=== PATIENT | female | born 1995 | race African-American/Black ===

== ENCOUNTER 2017-07-24 22:29 | Emergency (ER) | payer OTHER ==
[~2017-07-24] VITALS: Ht 157.5 cm; Wt 108.2 kg
[2017-07-24 22:39] VITALS: BP 124/69
--- NOTE | 2017-07-24 23:05 | NUR ---
PATIENT LEFT WITHOUT BEING SEEN BY DR. BLAKE. NO FURTHER CARE PROVIDED FOR PATIENT.
== END 2017-07-24 23:05 | disposition left against medical advice (07) ==
LOC: MED 22:29
DX: R10.13 Epigastric pain (principal); Z53.21 Procedure and treatment not carried out due to patient leaving prior to being seen by health care provider

== ENCOUNTER 2017-07-26 12:13 | Emergency (ER) | payer OTHER ==
[~2017-07-26] VITALS: Ht 157.5 cm; Wt 91.2 kg
[2017-07-26 12:20] VITALS: BP 125/72
--- NOTE | 2017-07-26 12:25 | NUR ---
PT AMBULATES TO BED 11
--- NOTE | 2017-07-26 12:27 | NUR ---
22/F BIB FAMILY C/O YELLOW URINE, LT LEG PAIN AFTER TAKING CIPROFLOXACIN 500MG, PHENAZOPYRIDINE 200MG YESTERDAY.HX; UTI. RX; CIPROFLOXACIN, PHENAZOPYRIDINE.PA DENIES N/V/D; SKIN IS PINK/WARM/DRY; AAOX4 WITH EVEN AND STEADY GAIT; LUNGS CLEAR BL. PT DENIES ANY FEVER, CP, SOB, OR COUGH AT THIS TIME; PATIENT STATES PAIN OF 9/10 AT THIS TIME. PATIENT POSITIONED FOR COMFORT; HOB ELEVATED; BEDRAILS UP X2; BED DOWN. ER MD MADE AWARE OF PT STATUS.
--- NOTE | 2017-07-26 12:36 | NUR ---
Patient being evaluated by DR NEGRO at bedside.
--- NOTE | 2017-07-26 12:44 | NUR ---
PT STATED LOWER ABD PAIN RADIATES TO R LEG & BACK & POWELL X 2 DAYS.
[2017-07-26 13:06] VITALS: BP 116/64
--- NOTE | 2017-07-26 13:06 | NUR ---
Patient discharged with v/s stable. Written and verbal after care instructions given and explained. Patient verbalized understanding. Ambulatory with steady gait. All questions addressed prior to discharge. Advised to follow up with PMD.
== END 2017-07-26 13:06 | disposition home or self-care (01) ==
LOC: MED 12:13
DX: N39.0 Urinary tract infection, site not specified (principal)
CPT/HCPCS: 81025; 99283